=== PATIENT | female | born 1955 | race Caucasian/White ===

== ENCOUNTER → 2019-09-25 08:17 | Outpatient (CLI) | payer OTHER ==
[2016-01-21 06:53] VITALS: BMI 23.9
[~2019-09-25 08:17] MED LIST: ALENDRONATE SOD70 MG PO; LEXAPRO10 MG PO; TAPAZOLE 5 MG TA5 MG PO; VITAMIN D3400 UNI1
== END | disposition home or self-care (01) ==
LOC: D.HCCECHO 08:17
PROVIDERS: ATTEND Internal Medicine Cardiovascular Disease
DX: R06.00 Dyspnea, unspecified (principal); I20.9 Angina pectoris, unspecified

== ENCOUNTER 2019-10-08 11:10 | Outpatient (CLI) | payer OTHER ==
[~2019-10-08] VITALS: Ht 162.6 cm; Wt 63.6 kg
--- NOTE | ~2019-10-08 | HEMODYNAMI ---
PATIENT:JAGJIT ROSENTHAL MEDICAL RECORD: [id number] : 51 LOCATION:[facility] ADMISSION DATE: 10/08/19 Generatedon:10/08/201914:47 Patient name: JAGJIT ROSENTHAL Patient #: [id number] SSN: [id number] : 1955 Date of study: 10/08/2019 Page: Of Hemodynamic Procedure Report Patient Data Patient Demographics Procedure consent was obtained First Name: JAGJIT Gender: Female Last Name: GALO : 1955 Middle Initial: D Age: 64 year(s) Patient #: [id number] Race: SSN: [id number] Additional ID: [id number] Contact details Address: [address] [address] State: [place] City: [place] Zip code: [address] Past Medical History Allergies: No known allergies Admission Admission Data Admission Date: 10/08/2019 Admission Time: 11:10 Arrival Date: 10/08/2019 Arrival Time: 0:00 Admit Source: Other [facility] #: [id number] Height (in.): 63.78 BSA: 1.67 (m2) Height (cm.): 162 BMI: 24.01 (kg/m2) Weight (lbs.): 138.89 Weight (kg.): 63 Lab Results Lab Result Date: 10/08/2019 Lab Result Time: 0:00 Biochemistry Name Units Result Min Max BUN mg/dl 13 --(--*-)-- 7 18 Creatinine mg/dl 0.8 --(-*--)-- 0.6 1.3 CBC Name Units Result Min Max Hemoglobin g/dl 13.7 --(*---)-- 13.5 17.5 Procedure Procedure Types Cath Procedure Diagnostic Procedure LHC LHC w/Coronaries Sedation Charges Moderate Sedation up to 15 minutes Procedure Description Procedure Date Procedure Date: 10/08/2019 Procedure Start Time: 14:28 Procedure End Time: 14:45 Procedure Staff Name Function Tiago Chávez MD Performing Physician Stephanie Chacon RT Monitor Shirley Mcdonald RT Scrub Pradeep Fritz RN Nurse Procedure Data Cath Procedure Fluoroscopy Diagnostic fluoroscopy Total fluoroscopy Time: 1.4 time: 1.4 min min Diagnostic fluoroscopy Total fluoroscopy dose: 232 dose: 232 mGy mGy Contrast Material Contrast Material Type Amount (ml) Isovue 300 42 Entry Location Entry Primary Successful Side Size Upsize Upsize Entry Closure Succes sful Closure Location (Fr) 1 (Fr) 2 (Fr) Remarks Device Remarks Femoral Right 5 Fr Exoseal artery Estimated blood loss: 10 ml Diagnostic catheters Device Type Used For End Catheter Placement MULTIPACK JL 4.0 5Fr Procedure catheter MULTIPACK 3DRC 5Fr Procedure catheter MULTIPACK Pigtail 5 Fr Ventriculography catheter Procedure Complications No complications Procedure Medications Medication Administration Route Dosage 0.9% NaCl I.V. 100 ml/hr Oxygen etCO2 Nasal cannula 2 l/min Heparin Flush Bag added to field 2 bags (1000units/500ml NS) Lidocaine 2% added to field 20 Radial Cocktail added to field 1 syringe (Verapamil 2mg/Nitro 400mcg/Heparin 1500units) Versed I.V. 1 mg Fentanyl I.V. 50 mcg Versed I.V. 1 mg Fentanyl I.V. 50 mcg Hemodynamics Rest BSA: 1.67 (m2) HGB: 13.7 (g/dl) O2 Consumption: Estimated: 153.97 (ml/min) O2 Co nsumption indexed: Estimated:92.2 (ml/min/m) Heart Rate: 67 (bpm) Pressure Samples Time Site Value (mmHg) Purpose Heart Use Rate(bpm) 14:40 LV 106/0,9 Snapshot 79 14:41 AO 111/58(84) Pullback 80 14:41 LV 113/-2,10 Pullback 80 Gradients Valve Time Site 1 Site 2 Mean SEP/DFP Peak To Heart Use (mmHg) (sec/min) Peak Rate (mmHg) (bpm) Aortic 14:41 LV AO 8 21 2 80 113/-2,10 111/58(84) Calculations Valve P-P Mean Valve Index Valve Source Name Gradient Area Flow (cm2) Aortic 2 8 2 8 Snapshots Pre Cath Intra NCS Post Cath Vital Signs Time Heart Resp SPO2 etCO2 NIBP Rhythm Pain Sedation Rate (ipm) (%) (mmHg) (mmHg) Status Level (bpm) 14:19:32 73 18 100 0 126/68(95) NSR 0 (11) 10(A) , No pain 14:23:46 68 10 100 36.2 107/61(83) NSR 0 (11) 10(A) , No pain 14:27:54 72 12 99 28 118/61(90) NSR 0 (11) 10(A) , No pain 14:32:08 71 10 100 6.6 84/49(74) NSR 0 (11) 9(A) , No pain 14:36:56 76 10 99 39.1 105/57(75) NSR 0 (11) 9(A) , No pain 14:41:02 80 19 99 42.1 103/64(82) NSR 0 (11) 9(A) , No pain 14:45:08 77 15 100 36.9 106/64(79) NSR 0 (11) 9(A) , No pain Medications Time Medication Route Dose Verified Delivered Reason Notes E ffectiveness by by 14:23:21 0.9% NaCl I.V. 100 Pradeep Pradeep Per ml/hr Catrina Fritz physician RN RN 14:23:33 Oxygen etCO2 2 l/min Pradeep Pradeep for low 02 Nasal Lorigan Lorigan sats cannula RN RN 14:23:42 Heparin Flush added 2 bags Pradeep Pradeep used for Bag to Lorigan Lorigan procedure (1000units/500ml field RN RN NS) 14:23:54 Lidocaine 2% added 20ml Pradeep Pradeep for local to vial Lorigan Lorigan anesthetic field RN RN 14:24:10 Radial Cocktail added 1 Pradeep Pradeep used for (Verapamil to syringe Lorigan Lorigan procedure 2mg/Nitro field RN RN 400mcg/Heparin 1500units) 14:28:25 Versed I.V. 1 mg Pradeep Pradeep for Lorigan Lorigan sedation RN RN 14:28:34 Fentanyl I.V. 50 mcg Pradeep Pradeep for Lorigan Lorigan sedation RN RN 14:31:43 Versed I.V. 1 mg Pradeep Pradeep for Lorigan Lorigan sedation RN RN 14:31:49 Fentanyl I.V. 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 13:58:54 Time tracking: Regular hours (M-F 7:00 - 5:00) 13:58:57 Plan of Care:Hemodynamics will remain stable., Cardiac rhythm will remain stable., Comfort level will be maintained., Respiratory function will remain adequate., Patient/ family verbilizes understanding of procedure., Procedure tolerated without complication., Recovers from procedure without complications.. 13:58:59 Pradeep Fritz RN sent for patient. Start room use. 14:07:54 H&P Date Dictated: 09/09/2019 Within 30 days and on chart., H&P Addendum completed by physician on day of procedure. (MUST COMPLETE FOR ALL OUTPATIENTS). 14:10:20 Admit Source: Other 14:: Arrival Date: 10/08/2019 12:00:00 AM 14:10:39 Patient Height : 63.78 inches 14:10:42 Patient Weight : 138.89 lbs 14:11:18 Lab Result : Creatinine 0.8 mg/dl 14:11:18 Lab Result : BUN 13 mg/dl 14:11:18 Lab Result : Hemoglobin 13.7 g/dl 14:11:41 Warm blankets applied, and amelie hugger turned on for patient comfort. 14:11:42 Correct patient and procedure confirmed by team. 14:11:43 ECG and BP/O2 sat monitors applied to patient. 14:11:56 Family in waiting room. 14:12:15 Patient allergic to No known allergies 14:12:19 Is the patient allergic to Iodine/contrast media? No. 14:12:22 Was the patient premedicated? Yes 14:13:04 2) 60-89 Mildly reduced kidney function, and other findings (as for stage 1) point to kidney disease. 14:13:19 Maximum allowable contrast dose (3.7 X eGFR X 0.75)210 ml. 14:13:25 Fire Safety Assessment: A--An alcohol-based skin anteseptic being used preoperatively., C--Open oxygen or nitrous oxide is being used., D--An ESU, laser, or fiber-optic light is being used. 14:18:30 Vital chart was started 14:18:31 Baseline sample Acquired. 14:18:35 Rhythm: sinus rhythm 14:18:37 Full Disclosure recording started 14:18:43 Is patient on blood thinner?No 14:18:46 Patient diabetic? No. 14:18:51 Snore? Yes 14:18:52 Sleep apnea? No 14:19:02 Patient pain scale 0/10 SOB. 14:19:09 IV patent on arrival in left forearm with 0.9% NaCl at O. 14:19:15 Lab results completed and on chart. 14:19:57 Stress Test: yes; abnormal inferior anterior 14:20:03 Right Radial & Right Groin area was prepped with chlora-prep and draped in sterile fashion 14:20:04 Alarms reviewed by R. N. 14:20:05 Sharps counted by scrub and verified by R.N. 14:23:21 0.9% NaCl 100 ml/hr I.V. was administered by Pradeep Fritz RN; Per physician; Verbal order read back and verified. 14:23:33 Oxygen 2 l/min etCO2 Nasal cannula was administered by Pradeep Fritz RN; for low 02 sats; Verbal order read back and verified. 14:23:42 Heparin Flush Bag (1000units/500ml NS) 2 bags added to field was administered by Pradeep Fritz RN; used for procedure; Verbal order read back and verified. 14:23:54 Lidocaine 2% 20ml vial added to field was administered by Pradeep Fritz RN; for local anesthetic; Verbal order read back and verified. 14:24:10 Radial Cocktail (Verapamil 2mg/Nitro 400mcg/Heparin 1500units) 1 syringe added to field was administered by Pradeep Fritz RN; used for procedure; Verbal order read back and verified. 14:24:45 Physician arrived 14:24:45 --------ALL STOP TIME OUT------ 14:24:46 Final Timeout: patient, procedure, and site verified with staff and physician. All members of the team are in agreement. 14:24:48 Right Radial & Right Groin site verified by team. 14:24:55 Physical assessment completed. ASA score P 3 - A patient with severe systemic disease as per Tiago Chávez MD. 14:25:00 Sedation plan: IV Moderate Sedation Medication:Versed, Fentanyl 14:28:21 Procedure started. 14::25 Versed 1 mg I.V. was administered by Pradeep Fritz RN; for sedation; Verbal order read back and verified. 14:28:29 ACIST Syringe (37169) opened to sterile field. 14:28:30 Medline Cath Pack ([id number]) opened to sterile field. 14:28:30 Bag Decanter () opened to sterile field. 14:28:30 ACIST Hand Control (67689) opened to sterile field. 14:28:31 ACIST Manifold (25148) opened to sterile field. 14:28:33 MBrace Wrist Support ([id number]) opened to sterile field. 14:28:34 Fentanyl 50 mcg I.V. was administered by Pradeep Fritz RN; for sedation; Verbal order read back and verified. 14:28:34 NEEDLE Cook 21G 4cm Radial (D86876) opened to sterile field. 14:28:36 EMERALD Guide Wire (750-341) opened to sterile field. 14:28:49 Local anesthetic to right radial artery with Lidocaine 2% by Tiago Chávez MD.INITIAL ACCESS ONLY 14:31:43 Versed 1 mg I.V. was administered by Pradeep Fritz RN; for sedation; Verbal order read back and verified. 14:31:49 Fentanyl 50 mcg I.V. was administered by Pradeep Fritz RN; for sedation; Verbal order read back and verified. 14:34:07 Local anesthetic to right femoral artery with Lidocaine 2% by Tiago Chávez MD.ADDITIONAL ACCESS 14:34:10 Use device set Femoral Dx 14:34:50 NEEDLE Cook 21G 4cm Radial (F50535) opened to sterile field. 14:35:11 Bag Decanter () opened to sterile field. 14:35:12 Medline Cath Pack ([id number]) opened to sterile field. 14:35:12 SHEATH 6FR RAIN (1533624) opened to sterile field. 14:35:13 ACIST Syringe (28365) opened to sterile field. 14:35:15 ACIST Hand Control (44697) opened to sterile field. 14:35:15 ACIST Manifold (24311) opened to sterile field. 14:35:17 DIAGNOSTIC Multipack 5Fr catheter set (KL0174) opened to sterile field. 14:35:18 Tegaderm 4 x 4 (1626W) opened to sterile field. 14:35:21 SHEATH 5FR [place] (TTN846) opened to sterile field. 14:35:21 EMERALD Guide Wire (951-251) opened to sterile field. 14:35:34 A 5 Fr sheath was inserted into the Right Femoral artery 14:35:49 A MULTIPACK JL 4.0 5Fr catheter was advanced over the wire and used for Procedure. 14:35:55 LCA angiography performed. 14:37:58 Catheter removed. 14:38:10 A MULTIPACK 3DRC 5Fr catheter was advanced over the wire and used for Procedure. 14:38:19 RCA angiography performed. 14:39:06 ACCDominant side:Right 14:39:11 Catheter removed. 14:39:19 A MULTIPACK Pigtail 5 Fr catheter was advanced over the wire and used for Ventriculography. 14:39:24 LV gram done using BILL 14:39:41 Zero performed for pressure channel P1 14:39:44 Zero performed for pressure channel P1 14:40:47 EF : 55 % 14:41:07 Catheter removed. 14:41:09 EXOSEAL 5Fr (EX500) opened to sterile field. 14:41:26 Sheath removed intact; hemostasis achieved with Exoseal to the Right Femoral artery. 14:41:36 Procedure ended.(Physican Out) 14:42:38 Fluoroscopy time 01.40 minutes. 14:42:42 Fluoroscopy dose: 232 mGy 14:42:42 Flurop Dose total: 232 14:42:48 Dose Area Product 84670 mGy/cm. 14:42:52 Contrast amount:Isovue 300 42ml. 14:42:54 Maximum allowable dose exceeded? No. 14:42:56 Sharps counted by scrub and verified by R.N. 14:42:57 Insertion/operative site no bleeding no hematoma. 14:43:00 Post-op/insertion site Right Femoral artery dressed using a 4 x 4 and Tegaderm. 14:43:03 Post Procedure Pulses reassessed and unchanged 14:43:23 Post procedure rhythm: unchanged. 14:43:26 Estimated blood loss: 10 ml 14:43:30 Post procedure instruction explained to patient.Patient verbalizes understanding. 14:43:55 Procedure type changed to Cath procedure, Diagnostic procedure, LHC, LHC w/Coronaries, Sedation Charges, Moderate Sedation up to 15 minutes 14:43:57 Procedure and supply charges have been captured, reviewed, submitted and are correct. 14:45:17 Procedure Complication : No complications 14:45:20 Vital chart was stopped 14:45:23 [facility] Findings: mild to moderate CAD (<70%) 14:45:25 Operative report dictated upon procedure completion. 14:45:26 See physician's report for complete and final results. 14:45:28 Report given to Pre/Post Procedure Room. 14:45:32 Patient transfered to Pre/Post Procedure Room with Stretcher. 14:45:34 Procedure ended. 14:45:34 Full Disclosure recording stopped 14:45:40 End room use (Document Last) 14:46:00 End room use (Document Last) 14:46:28 End room use (Document Last) Device Usage Item Name Manufacture Quantity Catalog Hospital Part Current Minima l Lot# / Number Charge Number Stock Stock Serial# Code ACIST Acist 2 96272 289488 186423 425961 20 Syringe Medical (53518) Systems Inc Medline Medline 2 [id number] 374545 01614 581458 5 Cath Pack ([id number]) Bag Microtek 2 2001S 234739 92521 796262 5 Decanter Medical Inc. () ACIST Hand Acist 2 27281 895588 157137 107028 5 Control Medical (87300) Systems Inc ACIST Acist 2 89424 269672 269517 032501 5 Manifold Medical (28497) Systems Inc MBrace Advanced 1 140-0250-00 106301 66943 296579 5 Wrist Vascular Support Dynamics ([id number]) NEEDLE Cook Cook Medical 2 L24019 273021 943703 742642 5 21G 4cm Radial (S46980) EMERALD Cardinal 2 502-455 572066 418923 271209 5 Guide Wire Health (502-455) SHEATH 6FR Cardinal 1 3470671 567499 1949273 387151 5 [facility] ([id number]) DIAGNOSTIC Cardinal 1 FT0853 092680 21257 908527 30 Multipack Health 5Fr catheter set (HF1422) Tegaderm 4 3M 1 1626W 348254 062419 193305 5 x 4 (1626W) SHEATH 5FR Terumo 1 ZLN218 862571 769103 492100 5 [place] (CYB683) MULTIPACK Cardinal 1 212328 5 JL 4.0 5Fr Health catheter MULTIPACK Cardinal 1 358252 5 3DRC 5Fr Health catheter MULTIPACK Cardinal 1 730724 5 Pigtail 5 Health Fr catheter EXOSEAL 5Fr Cardinal 1 EX500 149630 540051 509441 10 (EX500) Health Signature Audit [place] Stage Time Signature Unsigned Intra-Procedure 10/08/2019 Stephanie Chacon 2:46:00 PM RT(R) Intra-Procedure 10/08/2019 Pradeep 2:46:28 PM Catrina RODRIGUEZ Intra-Procedure 10/08/2019 Tiago Chávez MD 2:47:[address] [facility] [address] [id number]
[~2019-10-08 11:10] MED LIST changes: -LEXAPRO10 MG PO; -TAPAZOLE 5 MG TA5 MG PO
[2019-10-08] MEDS ORDERED: TAPAZOLE 5 MG TA5 MG PO (11:48)
[2019-10-08] MEDS ORDERED: LEXAPRO10 MG PO (11:49)
[2019-10-08 12:15] VITALS: BP 143/81; Ht 162.6 cm; Wt 63.6 kg
[2019-10-08 12:23] LABS: BASOPHILS 0.5 % (0-2); EOSINOPHILS 1.6 % (0-7); HEMATOCRIT 42.1 % (36.0-48.0); HEMOGLOBIN 13.7 g/dL (12-16); LYMPHOCYTES 31.3 % (15-50); MCH 30.4 pg (26.0-34.0); MCHC 32.5 g/dL (31.0-37.0); MCV 93.6 fL (80.0-100.0); MONOCYTES 11.4 % (2-11); NEUTROPHILS 55.2 % (40-80); PLATELET COUNT 195 10x3/uL (130-400); RDW 13.1 % (11.5-14.5); WBC 6.3 10x3/uL (4.8-10.8)
[2019-10-08 12:35] LABS: ALT (SGPT) 22 U/L (10-68); CALC OSMOLALITY 282 mosm/kg (275-300); CALCIUM 8.7 mg/dL (8.5-10.1); CARBON DIOXIDE 28.6 mmol/L (21.0-32.0); CHLORIDE - SERUM 106 mmol/L (98-107); CHOL - HDL RATIO 3.2 ratio (2.3-4.1); CHOLESTEROL, TOTAL 215 mg/dL (0-200); CREATININE - SERUM 0.8 mg/dL (0.6-1.3); GLUCOSE 97 mg/dL (74-106); HDL CHOLESTEROL 68 mg/dL (32-96); LDL CHOLESTEROL 132 mg/dL (0-100); LDL-HDL RATIO 1.9 ratio (1.5-3.5); POTASSIUM - SERUM 3.5 mmol/L (3.5-5.1); SODIUM 142 mmol/L (136-145); TRIGLYCERIDE 79 mg/dL (30-200); UREA NITROGEN 13 mg/dL (7-18); eGFR NON AFRICAN AMERICAN 76 mL/min (90-120)
--- NOTE | 2019-10-08 14:56 | NUR ---
PT ARRIVED BY STRETCHER. PLACED ON MONITOR. ASSESSMENT COMPLETED. VSS. CALL LIGHT WITHIN REACH. FAMILY AT BEDSIDE.
--- NOTE | 2019-10-08 15:10 | NUR ---
PT RESTING COMFORTABLY. VSS. RIGHT GROIN DRESSING C/D/I. NO S/S OF HEMATOMA NOTED. FAMILY AT BEDSIDE. DR. RUSSELL ROUNDED AND SPOKE WITH FAMILY AND PT.
--- NOTE | 2019-10-08 15:40 | NUR ---
RIGHT GROIN DRESSING C/D/I. NO S/S OF HEMATOMA NOTED. VSS. FAMILY AT BEDSIDE.
--- NOTE | 2019-10-08 16:00 | NUR ---
HEAD OF BED INC TO 30 DEGREES. TOLERATED WELL. RIGHT GROIN DRESSING C/D/I. NO S/S OF HEMATOMA NOTED. PT SET UP WITH DRINK AND SANDWICH TRAY. DENIES NAUSEA/PAIN. VSS. CALL LIGHT WITHIN REACH.
--- NOTE | 2019-10-08 16:30 | NUR ---
RIGHT GROIN DRESSING C/D/I. NO S/S OF HEMATOMA NOTED. PIV D/C'D WITH CATH TIP INTACT. TOLERATED WELL. PT INSTRUCTED TO GET UP AND DRESSED. FAMILY AT BEDSIDE TO ASSIST.
--- NOTE | 2019-10-08 16:48 | NUR ---
DISCUSSED DISCHARGE WITH PT AND PT'S FAMILY. THEY VOICED UNDERSTANDING.
--- NOTE | 2019-10-08 17:00 | NUR ---
PT AMBULATED TO RESTROOM. VOIDED WITHOUT DIFFICULTY. TAKEN OUT TO VEHICLE BY WHEELCHAIR. NO S/S OF DISTRESS NOTED. ALL BELONGINGS AND PAPERWORK IN HAND.
== END 2019-10-08 17:00 | disposition home or self-care (01) ==
LOC: D.CATH 11:10
PROVIDERS: ATTEND Internal Medicine Cardiovascular Disease
DX: I20.9 Angina pectoris, unspecified (principal); R94.30 Abnormal result of cardiovascular function study, unspecified; R06.02 Shortness of breath